=== PATIENT | male | born 1960 | race Caucasian/White ===

== ENCOUNTER 2020-05-30 18:02 | Emergency (ER) | payer OTHER ==
[~2020-05-30] VITALS: Ht 185.4 cm; Wt 83.9 kg
[2020-05-30 18:10] VITALS: BP 142/93
[2020-05-30] MEDS ORDERED: NORCO 10-325 T1 EACH PO (18:51)
[2020-05-30] MEDS ORDERED: KETOCONAZOLE 2200 MG PO (18:58)
[2020-05-30] MEDS ORDERED: AMBIEN 10 MG TA10 MG PO (18:58)
== END 2020-05-30 19:05 | disposition home or self-care (01) ==
LOC: ER 18:02
DX: G89.29 Other chronic pain (principal); Z76.0 Encounter for issue of repeat prescription; Z88.1 Allergy status to other antibiotic agents; Z88.5 Allergy status to narcotic agent; Z88.8 Allergy status to other drugs, medicaments and biological substances